=== PATIENT | female | born 1970 | race Caucasian/White ===

== ENCOUNTER → 2017-02-06 | Outpatient (CLI) | payer BC ==
--- NOTE | 2017-02-07 19:26 | WWHP ---
DATE OF SERVICE: 02/06/17 CHIEF COMPLAINT: The patient is here for her routine gynecological exam and mammogram. HISTORY OF PRESENT ILLNESS: This is a 46-year-old G2, P2, with an LMP of . Her is status post vasectomy. The patient is without gynecological complaints and says her periods are regular every month. She is here to establish with this office. PAST MEDICAL HISTORY: Unremarkable. Medications: None. ALLERGIES: None. PAST SURGICAL HISTORY: and bilateral breasts implants. Her implants are saline implants and replaced in 2001. PAST OB HISTORY: followed by vaginal . 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 SOCIAL HISTORY: She denies tobacco and drug use and rarely drinks alcohol, about one drink per year. 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 FAMILY HISTORY: Mother has epilepsy. She denies family history of cancer of the breast, uterus, ovaries or colon. REVIEW OF SYSTEMS: Weight has been stable. She denies respiratory, cardiac or gastrointestinal problems. PHYSICAL EXAM: Blood pressure 107/52. Height 5 feet 0 inches. Weight 103 pounds. Temperature 97.1. Pulse 62. This is a well developed, well nourished white female who is alert and oriented times three in no acute distress. HEENT: is within normal limits. Neck is supple without mass or thyromegaly. Chest and lungs clear to auscultation. Heart is regular rate and rhythm. Breasts: Without mass or discharge and are consistent with bilateral implants. Axillary exam is negative for adenopathy. Back negative for CVA tenderness. Abdomen is soft and nontender without palpable masses. Pelvic exam, normal external genitalia. Cervix and vagina appears normal. There is no evidence of prolapse. Uterus is mid position, nongravid size and nontender. There are no palpable adnexal masses or tenderness. Rectovaginal exam negative for mass or tenderness. Negative for occult blood. Extremities nontender. IMPRESSION: A 46-year-old gynecologically healthy female whose is status post vasectomy. PLAN: 1. Pap smear was performed. 2. Self breast examination was discussed. 3. Mammogram will be due 06/03 and a slip was given to the patient for this. 4. Osteoporosis prevention was discussed. 5. She will return in one year. [facility]
== END | disposition home or self-care (01) ==
LOC: WWCWWP 12:23
PROVIDERS: ATTEND Obstetrics & Gynecology
DX: Z01.419 Encounter for gynecological examination (general) (routine) without abnormal findings (principal)

== ENCOUNTER → 2018-01-03 | Outpatient (CLI) | payer BC ==
--- NOTE | 2018-01-04 10:54 | MM ---
Reason for exam: screening (asymptomatic). Last mammogram was performed 1 year and 7 months ago. History: Retro-pectoral saline implants in both breasts, 2001. Physical Findings: A clinical breast exam by your physician is recommended on an annual basis and results should be correlated with mammographic findings. MG 3D Screen Mammo Imp/Cad Bilateral CC, MLO, and ID view(s) were taken. Prior study comparison: June 08, 2016, bilateral MG 3d screen mammo imp/cad. December 29, 2014, bilateral MG screening mammo implant/CAD. The breast tissue is heterogeneously dense. This may lower the sensitivity of mammography. No suspicious abnormality. Bilateral retropectoral saline implants. No significant changes when compared with prior studies. ASSESSMENT: Negative, BI-RAD 1 RECOMMENDATION: Routine screening mammogram of both breasts in 1 year.
== END | disposition home or self-care (01) ==
LOC: RADMAMWWP 07:32
PROVIDERS: ATTEND Obstetrics & Gynecology
DX: Z12.31 Encounter for screening mammogram for malignant neoplasm of breast (principal); Z98.82 Breast implant status
CPT/HCPCS: 77063; 77067

== ENCOUNTER → 2019-03-11 | Outpatient (CLI) | payer BC ==
[2019-03-11 13:01] VITALS: BP 107/69; PULSE 61; RESP 16; TEMP 98.3; BMI 20.1
--- NOTE | 2019-03-11 13:36 | P.HPOB ---
History of Present Illness H&P Date: 03/11/19 Chief Complaint: The patient is here for her routine gynecologic exam and ma mmogram. This is a 48-year-old with an LMP of 02/24/2019. The patient's is status post vasectomy. The patient is without gynecologic complaints. Menstrual periods are regularly month. Review of Systems She has gained 2 pounds over the last year. She denies respiratory, cardiac, or G.I. problems. 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 History of Any Multi-Drug Resistant Organisms: None Reported Past Surgical History: Breast Surgery, Section Additional Past Surgical History / Comment(s): x1 followed by a vaginal delivery. 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 - Past Family History Mother Family Medical History: Seizure Disorder Medications and Allergies Home Medications Medication Instructions Recorded Confirmed Type No Known Home Medications 02/06/18 03/11/19 History Allergies Allergy/AdvReac Type Severity Reaction Status Date / Time No Known Allergies Allergy Unverified 03/11/19 13:01 Exam Vital Signs Temp Pulse Resp BP Pulse Ox 03/11/19 12:55 98.3 F 61 16 107/69 100 Intake and Output 03/10/19 03/11/19 03/11/19 22:59 06:59 14:59 Other: Weight 46.72 kg Height 5'0", weight 103 pounds, BMI 20.1. This is a well-developed well-nourished white female who is alert and oriented times 3 in no acute distress. HEENT: Within normal limits. NECK: Supple without mass or thyromegaly. CHEST AND LUNGS: Clear to auscultation. HEART: Regular rate and rhythm. BREASTS: Are without mass or discharge. Breasts are consistent with bilateral implants. AXILLARY EXAM: Negative for adenopathy. BACK: Negative for CVA tenderness. ABDOMEN: Soft, nontender, without palpable masses. PELVIC EXAM: Normal external genitalia. Cervix and vagina appear normal. There is no unusual discharge. There is no evidence of prolapse. The uterus is midposition, nongravid size and nontender. There are no palpable adnexal masses or tenderness. RECTAL EXAM: negative for mass or tenderness and is negative for occult blood. EXTREMITIES: Nontender. IMPRESSION: 1. 48-year-old female with normal gynecologic exam whose is status post vasectomy. PLAN: 1. Pap smear was performed. 2. Self breast awareness was discussed with the patient. 3. Screening mammogram will be done today. 4. Osteoporosis prevention was discussed. I have stressed the importance of adequate calcium, vitamin D and regular exercise. Recommended amounts of calcium and vitamin D were also discussed. 5. She was advised to return in one year for her annual well woman exam.
--- NOTE | 2019-03-13 09:44 | MM ---
Reason for exam: screening (asymptomatic). Last mammogram was performed 1 year and 2 months ago. History: Retro-pectoral saline implants in both breasts, 2001. Physical Findings: A clinical breast exam by your physician is recommended on an annual basis and results should be correlated with mammographic findings. MG 3D Screen Mammo Imp/Cad Bilateral CC, MLO, and ID view(s) were taken. Prior study comparison: January 03, 2018, bilateral MG 3d screen mammo imp/cad. June 08, 2016, bilateral MG 3d screen mammo imp/cad. The breast tissue is heterogeneously dense. This may lower the sensitivity of mammography. No significant changes when compared with prior studies. ASSESSMENT: Benign, BI-RAD 2 RECOMMENDATION: Routine screening mammogram of both breasts in 1 year.
== END ==
LOC: WWCWWP 12:29
PROVIDERS: ATTEND Obstetrics & Gynecology
DX: Z12.31 Encounter for screening mammogram for malignant neoplasm of breast (principal); Z98.82 Breast implant status
CPT/HCPCS: 77063; 77067

== ENCOUNTER → 2020-05-12 | Outpatient (CLI) | payer BC ==
[2020-05-12 11:27] VITALS: BP 111/58; PULSE 75; RESP 18; TEMP 98.3
--- NOTE | 2020-05-12 12:05 | P.HPOB ---
History of Present Illness H&P Date: 05/12/20 Chief Complaint: The patient is here for her routine gynecologic exam and ma mmogram. This is a 49-year-old with an LMP of 04/24/2020. The patient's is status post vasectomy. She recently remarried in January 2020. Menstrual periods are regular every month. She believes she may have a urinary tract infection. About 1 week ago she started having urinary frequency. She now will feel like she has to void approximately 10 minutes after voiding. She denies d ysuria but she does feel occasional bladder pressure. She did a [id number] urine test which she states was positive for leukocytes. She is otherwise without complaints. She denies vaginal discharge. Review of Systems The patient has lost 5 pounds over the last year. She denies respiratory, cardiac, or G.I. problems. : Urinary frequency as in the HPI. 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 History of Any Multi-Drug Resistant Organisms: None Reported Past Surgical History: Breast Surgery, Section Additional Past Surgical History / Comment(s): x1 followed by a vaginal delivery. Bilateral breast implants. Past Psychological History: No Psychological Hx Reported Smoking Status: Never smoker Past Alcohol Use History: Occasional (3 per month) Past Drug Use History: None Reported Additional History: She has been since January 2020 and this is her second marriage. 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 - Past Family History Mother Family Medical History: Seizure Disorder Medications and Allergies Home Medications Medication Instructions Recorded Confirmed Type Cholecalciferol [Vitamin D3 (25 5,000 unit PO DAILY 05/12/20 05/12/20 History Mcg = 1000 Iu)] Allergies Allergy/AdvReac Type Severity Reaction Status Date / Time No Known Allergies Allergy Unverified 05/12/20 11:28 Exam Vital Signs Temp Pulse Resp BP Pulse Ox 05/12/20 11:21 98.3 F 75 18 111/58 100 Intake and Output 05/11/20 05/12/20 05/12/20 22:59 06:59 14:59 Other: Weight 44.452 kg Height 5 foot 1/2 inch, weight 98 pounds, BMI 18.8. This is a well-developed well-nourished white female who is alert and oriented times 3 in no acute distress. HEENT: Within normal limits. NECK: Supple without mass or thyromegaly. CHEST AND LUNGS: Clear to auscultation. HEART: Regular rate and rhythm. BREASTS: Are without mass or discharge. Breast exam is consistent with bilateral implants. AXILLARY EXAM: Negative for adenopathy. BACK: Negative for CVA tenderness. ABDOMEN: Soft, nontender, without palpable masses. PELVIC EXAM: Normal external genitalia. Cervix and vagina appear normal. Cervix appears multiparous. There is no unusual discharge. There is no evidence of prolapse. The uterus is midposition, nongravid size and nontender. There are no palpable adnexal masses or tenderness. RECTAL EXAM: negative for mass or tenderness and is negative for occult blood. EXTREMITIES: Nontender. IMPRESSION: 1. 49-year-old premenopausal female whose is status post vasectomy with normal gynecologic exam. 2. Urinary frequency, probable cystitis UTI. PLAN: 1. Pap smear was deferred since she had a normal one on 03/11/2019. 2. Self breast awareness was discussed with the patient. 3. Screening mammogram will be done today. 4. Urine has been obtained for urinalysis and urine culture with sensitivity. 5. Because of her urinary symptoms with urinary frequency up to every 10 minutes, she will be treated empirically with Macrobid 1 by mouth twice a day 7 days. The electronic prescription will be sent to [facility] at [facility]. 6. She was advised to return in one year for her annual well woman exam and as needed.
[2020-05-12 14:32] LABS: Appearance,Urine Clear (Clear); Bacteria,Urine Rare /hpf; Bilirubin,Urine Negative (Negative); Blood,Urine Moderate (Negative); Color,Urine Yellow; Glucose,Urine (UA) Negative (Negative); Ketones,Urine Negative (Negative); Leukocyte Esterase,Urine Negative (Negative); Mucus,Urine Rare /hpf; Nitrite,Urine Negative (Negative); PH, Urine 6.5 (5.0-8.0); Protein,Urine Negative (Negative); RBC,Urine 18 /hpf (0-5); Specific Gravity,Urine 1.013 (1.001-1.035); Urobilinogen,Urine <2.0 mg/dL (<2.0); WBC,Urine 4 /hpf (0-5)
--- NOTE | 2020-05-17 08:26 | MM ---
Reason for exam: screening (asymptomatic). Last mammogram was performed 1 year and 2 months ago. History: Retro-pectoral saline implants in both breasts, 2001. Physical Findings: A clinical breast exam by your physician is recommended on an annual basis and results should be correlated with mammographic findings. MG 3D Screen Mammo Imp/Cad Bilateral CC, MLO, and ID view(s) were taken. Prior study comparison: March 11, 2019, bilateral MG 3d screen mammo imp/cad. January 03, 2018, bilateral MG 3d screen mammo imp/cad. Bilateral breast prothesis. No significant changes when compared with prior studies. ASSESSMENT: Benign, BI-RAD 2 RECOMMENDATION: Routine screening mammogram of both breasts in 1 year.
--- NOTE | 2020-05-18 17:58 | P.PN ---
Progress Note - Text Progress Note Date: 05/18/20 OUTPATIENT FOLLOW-UP NOTE TEST(S)/RESULTS: Test results from 05/12/2020 include benign mammogram and urine culture showing findings consistent with UTI from E. coli that was sensitive to nitrofurantoin METHOD OF NOTIFICATION: She was notified by phone. PATIENT COMMENTS: She has completed her course of nitrofurantoin and states she is feeling much better. DIAGNOSIS: Benign mammogram. UTI improved with nitrofurantoin. DISCUSSION: PLAN: She was advised to return in one year for her annual well woman exam and as needed.
== END | disposition home or self-care (01) ==
LOC: WWCWWP 11:05
PROVIDERS: ATTEND Obstetrics & Gynecology
DX: Z12.31 Encounter for screening mammogram for malignant neoplasm of breast (principal); R35.0 Frequency of micturition
CPT/HCPCS: 77063; 77067; 81001; 87077; 87086; 87186

== ENCOUNTER → 2021-06-07 | Outpatient (CLI) | payer BC ==
[2021-06-07 12:53] VITALS: BP 116/74; PULSE 70; RESP 18; TEMP 98.1
--- NOTE | 2021-06-07 13:36 | P.HPOB ---
History of Present Illness H&P Date: 06/07/21 Chief Complaint: The patient is here for her routine gynecologic exam and ma mmogram. This is a 50-year-old with an LMP of 06/07/2021. The patient's is status post vasectomy. The patient is without gynecologic complaints. She states her menstrual periods have been fairly regular every month, however, she skipped a menstrual periods last June and also in March. Review of Systems The patient's weight has been stable over the last year. She denies respiratory, cardiac, or G.I. problems. 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 History of Any Multi-Drug Resistant Organisms: None Reported Past Surgical History: Breast Surgery, Section Additional Past Surgical History / Comment(s): x1 followed by a vaginal delivery. Bilateral breast implants. Past Psychological History: No Psychological Hx Reported Smoking Status: Never smoker Past Alcohol Use History: Occasional (3 per month) Past Drug Use History: None Reported Additional History: She has been since January 2020 and this is her second marriage. 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 - Past Family History Mother Family Medical History: Seizure Disorder Medications and Allergies Home Medications Medication Instructions Recorded Confirmed Type Cholecalciferol [Vitamin D3 (25 5,000 unit PO DAILY 05/12/20 06/07/21 History Mcg = 1000 Iu)] Cyanocobalamin [Vitamin B-12] 500 mcg PO DAILY 06/07/21 06/07/21 History diphenhydrAMINE [Benadryl] 25 mg PO HS PRN 06/07/21 06/07/21 History Allergies Allergy/AdvReac Type Severity Reaction Status Date / Time No Known Allergies Allergy Unverified 06/07/21 12:46 Exam Vital Signs Temp Pulse Resp BP Pulse Ox 06/07/21 12:48 98.1 F 70 18 116/74 99 Intake and Output 06/06/21 06/07/21 06/07/21 22:59 06:59 14:59 Other: Weight 43.998 kg Height 5 feet 0 inches, weight 97 pounds, BMI 18.9. This is a well-developed well-nourished white female who is alert and oriented times 3 in no acute distress. HEENT: Within normal limits. NECK: Supple without mass or thyromegaly. CHEST AND LUNGS: Clear to auscultation. HEART: Regular rate and rhythm. BREASTS: Are without mass or discharge. Breasts are consistent with bilateral implants. AXILLARY EXAM: Negative for adenopathy. BACK: Negative for CVA tenderness. ABDOMEN: Soft, nontender, without palpable masses. PELVIC EXAM: Normal external genitalia. Cervix and vagina appear normal. There is a small amount of menstrual blood in the vagina. There is no unusual discharge. There is no evidence of prolapse. The uterus is midposition, nongravid size and nontender. There are no palpable adnexal masses or te nderness. RECTAL EXAM: Rectovaginal exam is negative for mass or tenderness and is negative for occult blood. EXTREMITIES: Nontender. IMPRESSION: 1. 50-year-old premenopausal female with normal gynecologic exam. 2. Slight menstrual irregularity, probable early perimenopause. PLAN: 1. Pap smear cotest was performed. 2. Self breast awareness was discussed with the patient. We have also disc ussed symptoms associated with inflammatory breast cancer. 3. Screening mammogram will be done today. 4. The patient is considering having her breast implants removed she denies any problems, but thinks she was told to have them removed after certain number of years. She will see either a general surgeon or plastic surgeon for Implant removal if she wants to proceed. 5. Osteoporosis prevention was discussed. I have stressed the importance of adequate calcium, vitamin D and regular exercise. Recommended amounts of calcium and vitamin D were also discussed. 6. She has not received a Covid vaccination and has not had Covid. We have discussed the vaccination and have recommended that she get vaccinated. She will consider this. 7. I have recommended screening colonoscopy based on her age. She will look into doing this. 8. I have recommended that she look into getting a primary care physician. 9. She was advised to return in one year for her annual well woman exam.
== END ==
LOC: WWCWWP 12:23
PROVIDERS: ATTEND Obstetrics & Gynecology
DX: Z12.31 Encounter for screening mammogram for malignant neoplasm of breast (principal); N92.6 Irregular menstruation, unspecified
CPT/HCPCS: 77063; 77067

== ENCOUNTER → 2021-06-22 | Outpatient (CLI) | payer BC ==
--- NOTE | 2021-06-22 11:29 | USB ---
Reason for exam: additional evaluation requested from abnormal screening. History: Retro-pectoral saline implants in both breasts, 2001. Physical Findings: Nurse did not find any significant physical abnormalities on exam. US Breast Workup Limited [place] Right limited breast ultrasound including focal area of concern, retroareolar and axilla demonstrates a 1.0 x 0.3 x 1.1cm possible prominent fat lobule versus subtle lesion at 2 o'clock, 6 month follow up recommended. Left limited breast ultrasound including focal area of concern, retroareolar and axilla demonstrates no cystic or solid lesion seen. Underlying breast implants. No other cystic or solid lesions. Right scanned 12-6 o'clock. Left scanned 3-9 o'clock. These results were verbally communicated with the patient and result sheet given to the patient on 06/22/21. ASSESSMENT: Probably benign, BI-RAD 3 RECOMMENDATION: Ultrasound of the right breast in 6 months.
== END | disposition home or self-care (01) ==
LOC: RADUSWWP 09:39
PROVIDERS: ATTEND Obstetrics & Gynecology
DX: R92.8 Other abnormal and inconclusive findings on diagnostic imaging of breast (principal)

== ENCOUNTER → 2021-12-23 | Outpatient (CLI) | payer BC ==
--- NOTE | 2021-12-23 12:12 | USB ---
Reason for Exam: Follow-up at short interval from prior study. Patient History: Menarche at age 14. First Full-Term at age 27. 2001, Bilateral Implants. Risk Values: Edith 5 year model risk: 1.0%. NCI Lifetime model risk: 8.9%. Technique: Method: Whole Breast Handheld. Patient Position: Supine. Prior Study Comparison: 03/11/2019 Bilateral Screening Mammogram, [facility]. 05/12/2020 Bilateral Screening Mammogram, [facility]. 06/07/2021 Bilateral Screening Mammogram, [facility]. Findings: The whole breast of the right breast was scanned. Entire right breast scanned. Solid oval mass sitting anterior to the implant at Rt 200 6CFN measuring [id number], similar in size and appearance to the 06/22/21 imaging. Overall Assessment: Benign, BI-RAD 2 Management: Screening Mammogram of both breasts in 6 months. Back on schedule. Electronically signed and approved by: Everton Alexandra M.D.
== END | disposition home or self-care (01) ==
LOC: RADUSWWP 08:40
PROVIDERS: ATTEND Obstetrics & Gynecology
DX: R92.8 Other abnormal and inconclusive findings on diagnostic imaging of breast (principal)

== ENCOUNTER → 2022-11-28 | Outpatient (CLI) | payer BC ==
[2022-11-28 11:23] VITALS: BP 116/76; PULSE 71; RESP 16; TEMP 96.5
--- NOTE | 2022-11-28 12:00 | P.HPOB ---
History of Present Illness H&P Date: 11/28/22 Chief Complaint: The patient is here for her routine gynecologic exam and ma mmogram. This is a 52-year-old with an LMP of 11/15/2022. Her is status post vasectomy. Her menstrual periods have become more irregular over the past 6 months. Prior to that they were about every month with a rare missed period. She has had menstrual periods in June, September, and October of this year. She has experienced occasional hot flashes which are not very bothersome. Review of Systems The patient's weight has been stable over the last year. She denies respiratory, cardiac, or G.I. problems. 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 History of Any Multi-Drug Resistant Organisms: None Reported Past Surgical History: Breast Surgery, Section Additional Past Surgical History / Comment(s): x1 followed by a vaginal delivery. Bilateral breast implants. Past Psychological History: No Psychological Hx Reported Smoking Status: Never smoker Past Alcohol Use History: Occasional (3 or 4 per month.) Past Drug Use History: None Reported Additional History: She has been since 2019 and this is her second marriage. 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 - Past Family History Mother Family Medical History: Seizure Disorder Medications and Allergies Home Medications Medication Instructions Recorded Confirmed Type No Known Home Medications 11/28/22 11/28/22 History Allergies Allergy/AdvReac Type Severity Reaction Status Date / Time No Known Allergies Allergy Unverified 11/28/22 11:20 Exam Vital Signs Temp Pulse Resp BP Pulse Ox 11/28/22 11:21 96.5 F L 71 16 116/76 98 Intake and Output 11/27/22 11/28/22 11/28/22 22:59 06:59 14:59 Other: Weight 43.998 kg Height 5 feet 0 inches, weight 97 pounds, BMI 18.9. This is a well-developed well-nourished white female who is alert and oriented times 3 in no acute distress. HEENT: Within normal limits. NECK: Supple without mass or thyromegaly. CHEST AND LUNGS: Clear to auscultation. HEART: Regular rate and rhythm. BREASTS: Are without mass or discharge. Breasts are consistent with bilateral implants. AXILLARY EXAM: Negative for adenopathy. BACK: Negative for CVA tenderness. ABDOMEN: Soft, nontender, without palpable masses. PELVIC EXAM: Normal external genitalia. Cervix and vagina appear normal. There is no unusual discharge. There is no evidence of prolapse. The uterus is midposition, nongravid size and nontender. There are no palpable adnexal masses or tenderness. RECTAL EXAM: Rectovaginal exam is negative for mass or tenderness and is negative for occult blood. EXTREMITIES: Nontender. IMPRESSION: 1. 52-year-old perimenopausal female with normal gynecologic exam. 2. Recent oligomenorrhea and mild vasomotor symptoms consistent with the perimenopause. PLAN: 1. Pap smear was deferred since she had a negative Pap smear cotest on 06/07/2021. 2. Self breast awareness was discussed with the patient. We have also discussed symptoms associated with inflammatory breast cancer. 3. Screening mammogram will be done today. 4. Osteoporosis prevention was discussed. I have stressed the importance of adequate calcium, vitamin D and regular exercise. Recommended amounts of calcium and vitamin D were also discussed. 5. She plans on doing a colonoscopy and she will do this through her PCP. 6. She will call if menstrual problems. 7. She was advised to return in one year for her annual well woman exam and as needed.
--- NOTE | 2022-11-29 09:05 | MM ---
Reason for Exam: Hx of breast augmentation, asymptomatic. Last mammogram was performed 1 year(s) and 6 month(s) ago. Patient History: Menarche at age 14. First Full-Term at age 27. Perimenopausal. 2001, Bilateral Implants. Risk Values: Edith 5 year model risk: 1.1%. NCI Lifetime model risk: 8.8%. Prior Study Comparison: 03/11/2019 Bilateral Screening Mammogram, [facility]. 05/12/2020 Bilateral Screening Mammogram, [facility]. 06/07/2021 Bilateral Screening Mammogram, [facility]. Tissue Density: The breast tissue is heterogeneously dense. This may lower the sensitivity of mammography. Findings: Analyzed By CAD. There is no suspicious group of microcalcifications or new suspicious mass in either breast. Bilateral implants are intact. Overall Assessment: Benign, BI-RAD 2 Management: Screening Mammogram of both breasts in 1 year. . Patient should continue monthly self-breast exams. A clinical breast exam by your physician is recommended on an annual basis. This exam should not preclude additional follow-up of suspicious palpable abnormalities. Note on Edith scores and lifetime risk: 1. A Edith score greater than 3% is considered moderate risk. If this is the case, consider specialist referral to assess eligibility for a risk reducing agent. 2. If overall lifetime risk for the development of breast cancer is 20% or higher, the patient may qualify for future screening with alternating mammogram and breast MRI. Electronically signed and approved by: Brenden Zhong M.D. Radiologis
== END ==
LOC: WWCWWP 11:09
PROVIDERS: ATTEND Obstetrics & Gynecology
DX: Z12.31 Encounter for screening mammogram for malignant neoplasm of breast (principal); Z01.411 Encounter for gynecological examination (general) (routine) with abnormal findings; Z98.890 Other specified postprocedural states
CPT/HCPCS: 77063; 77067

== ENCOUNTER → 2024-01-15 | Outpatient (CLI) | payer BC ==
[2024-01-15 12:57] VITALS: BP 115/70; PULSE 63; RESP 16; TEMP 98.3
--- NOTE | 2024-01-15 13:27 | P.HPOB ---
History of Present Illness H&P Date: 01/15/24 Chief Complaint: The patient is here for her routine gynecologic exam. This is a 53-year-old with an LMP of 03/30/2023. The patient's is status post vasectomy. She states her menstrual periods have become much less frequent. She does have occasional hot flashes but they are mild. She is otherwise without gynecologic complaints. Review of Systems She has gained about 6 pounds over the past year. She denies respiratory or cardiac problems. GI: She has found that certain foods, such as greasy foods, can upset her stomach. Past Medical History Past Medical History: No Reported History Additional Past Medical History / Comment(s): PAST MEDIA PROFESSIONAL HISTORY: She has no history of STDs. History of Any Multi-Drug Resistant Organisms: None Reported Past Surgical History: Breast Surgery, Section Additional Past Surgical History / Comment(s): x1 followed by a vaginal delivery. Bilateral breast implants. Colonoscopy 2022(next after 10yr). Past Psychological History: No Psychological Hx Reported Smoking Status: Never smoker Past Alcohol Use History: Rare (0-1 drink per month) Past Drug Use History: None Reported Additional History: She has been since 2019 and this is her second marriage. 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 - Past Family History Mother Family Medical History: Seizure Disorder Medications and Allergies Home Medications Medication Instructions Recorded Confirmed Type Vitamin D3/Vitamin K2 (Mk4) 1 tablet PO DAILY 01/15/24 01/15/24 History [Vitamin K2 Plus D3 Tablet] Allergies Allergy/AdvReac Type Severity Reaction Status Date / Time No Known Allergies Allergy Unverified 01/15/24 12:55 Exam Vital Signs Temp Pulse Resp BP Pulse Ox 01/15/24 12:55 98.3 F 63 16 115/70 98 Intake and Output 01/14/24 01/15/24 01/15/24 22:59 06:59 14:59 Other: Weight 46.72 kg Height 5 feet 0 inches, weight 103 pounds, BMI 20.1. This is a well-developed well-nourished white female who is alert and oriented times 3 in no acute distress. HEENT: Within normal limits. NECK: Supple without mass or thyromegaly. CHEST AND LUNGS: Clear to auscultation. HEART: Regular rate and rhythm. BREASTS: Are without mass or discharge. Breasts are consistent with bilateral implants. AXILLARY EXAM: Negative for adenopathy. BACK: Negative for CVA tenderness. ABDOMEN: Soft, nontender, without palpable masses. PELVIC EXAM: Normal external genitalia with minimal atrophy. Cervix and vagina appear normal. There is no unusual discharge. There is no evidence of prolapse. The uterus is midposition, nongravid size and nontender. There are no palpable adnexal masses or tenderness. RECTAL EXAM: Rectovaginal exam is negative for mass or tenderness and is negative for occult blood. EXTREMITIES: Nontender. IMPRESSION: 1. 53-year-old perimenopausal female with increasing oligomenorrhea and mild vasomotor symptoms, with normal gynecologic exam. PLAN: 1. Pap smear was deferred since she had a negative Pap smear cotest on 06/07/2021. 2. Self breast awareness was discussed with the patient. We have also discussed symptoms associated with inflammatory breast cancer. 3. Screening mammogram is due and the order slip was given to the patient for this. 4. Osteoporosis prevention was discussed. I have stressed the importance of adequate calcium, vitamin D and regular exercise. Recommended amounts of calcium and vitamin D were also discussed. 5. She will keep a menstrual calendar and call if she is having menstrual problems or if she is experiencing bleeding after 12 months of amenorrhea. 6. She was advised to return in one year for her annual well woman exam.
== END ==
LOC: WWCWWP 12:28
PROVIDERS: ATTEND Obstetrics & Gynecology
DX: Z01.419 Encounter for gynecological examination (general) (routine) without abnormal findings (principal); N91.5 Oligomenorrhea, unspecified; Z78.0 Asymptomatic menopausal state